=== PATIENT | male | born 1985 | race Caucasian/White ===

== ENCOUNTER 2023-08-12 07:40 | Day surgery (SDC) | payer BC | END 2023-08-13 22:56 | disposition home or self-care (01) | LOC: CT 07:40 | DX: I49.3 Ventricular premature depolarization (principal); E78.5 Hyperlipidemia, unspecified; Z79.899 Other long term (current) drug therapy | CPT/HCPCS: 75574; Q9967 ==

== ENCOUNTER 2024-04-08 15:14 | Emergency (ER) | payer BC ==
[~2024-04-08] VITALS: Ht 182.9 cm; Wt 99.8 kg
[2024-04-08 15:27] VITALS: BP 156/118
== END 2024-04-08 15:59 | disposition home or self-care (01) ==
LOC: ER 15:14
DX: S61.012A Laceration without foreign body of left thumb without damage to nail, initial encounter (principal); W27.0XXA Contact with workbench tool, initial encounter
CPT/HCPCS: 12001; 99282-25